=== PATIENT | male | born 1980 | race Caucasian/White ===

== ENCOUNTER 2019-12-16 00:20 | Emergency (ER) | payer MEDICAID ==
[~2019-12-16] VITALS: Ht 195.6 cm; Wt 90.7 kg
--- NOTE | 2019-12-16 00:30 | NUR ---
Pt brought himself to ER from home, ambulatory with steady gait. AO x 4. C/o swelling on R AC, injected IV meth 4 days ago per patient. Area on R AC is hard, warm to touch and swelling. No open wound or bleeding noted. Breathing even and unlabored. Denies chest pain. No /GI/other complaints or discomfort. Per patient, he has not had any recreational substance anytime thereafter. Side rails up x1. Bed locked in position.
--- NOTE | 2019-12-16 00:38 | NUR ---
Dr. Guadarrama at bedside for MSE.
--- NOTE | 2019-12-16 00:45 | NUR ---
Dr. Guadarrama at bedside for I&D.
[2019-12-16] MEDS ORDERED: SULFAMETH/TRIMETH 800/160 MG TABLET ONE (00:57)
[2019-12-16] MEDS ORDERED: LIDOCAINE HCL 2% 20 ML VIAL TP ONE (01:00)
[2019-12-16] MEDS ORDERED: SULFAMETH/TRIMETH 800/160 MG TABLET PO ONE (01:00)
[2019-12-16 01:04] VITALS: BP 160/98
--- NOTE | 2019-12-16 01:04 | NUR ---
Patient discharged to home in stable condition. Written and verbal after care instructions given. Patient verbalizes understanding of instructions. Stressed follow up or return to ER for worsening s/s.
== END 2019-12-16 01:06 | disposition home or self-care (01) ==
LOC: ER 00:28
DX: L02.414 Cutaneous abscess of left upper limb (principal); S51.832S Puncture wound without foreign body of left forearm, sequela; X78.8XXS Intentional self-harm by other sharp object, sequela; F15.10 Other stimulant abuse, uncomplicated; F17.200 Nicotine dependence, unspecified, uncomplicated; Z59.0 Homelessness
CPT/HCPCS: 10060; 99283; J3490; A4663